=== PATIENT | female | born 1985 | race Caucasian/White ===

== ENCOUNTER 2016-11-19 16:36 | Emergency (ER) | payer OTHER ==
[~2016-11-19] VITALS: Ht 160 cm; Wt 117.0 kg
[~2016-11-19 16:36] MED LIST: CLINDAMYCIN HC300 MG PO; Motrin PO; Percocet 5/325,Endoc PO
[2016-11-19 17:21] LABS: BILIRUBIN NEGATIVE; BLOOD NEGATIVE; COLOR YELLOW ((YELLOW)); GLUCOSE (STRIP) NEGATIVE; KETONES NEGATIVE; LEUKOCYTES NEGATIVE; NITRITE NEGATIVE; PROTEIN (STRIP) NEGATIVE; SPECIFIC GRAVITY 1.018 (1.000-1.030); UROBILINOGEN 0.2 MG/DL (0.2-1.0)
[2016-11-19 17:30] LABS: HEMATOCRIT 42.5 % (36.0-46.0); MCH 30.4 PG (29.0-34.0); MCHC 32.9 G/DL (30.0-36.0); MCV 92.4 FL (83-99); MEAN PLAT.VOLUME 10.1 uM^3 (9.5-12.4); PLATELET COUNT 260 K/uL (156-360); RBC DIS.WIDTH-CV 13.2 % (11.8-14.6); RBC DIS.WIDTH-SD 44.8 % (39-53); WHITE BLOOD COUNT 10.4 K/uL (4.1-10.2)
[2016-11-19 17:38] LABS: CHLORIDE 106 mEq/L (99-109); POTASSIUM 3.9 mEq/L (3.7-5.4); SODIUM 136 mEq/L (136-147)
[2016-11-19 17:40] LABS: GLUCOSE 89 mg/dL (70-99)
[2016-11-19 17:41] LABS: ANION GAP 8 MEQ/L (2-14)
[2016-11-19 17:41] LABS: ADD MIUA? NO; UCUL ADDED? NO
[2016-11-19 17:42] LABS: TOTAL BILIRUBIN 0.2 mg/dL (0.0-1.0)
[2016-11-19 17:44] LABS: ALKALINE PHOSPHATASE 54 IU/L (3-129); GFR ESTIMATE (CALCULATED) > 59 mL/min/
[2016-11-19 17:45] LABS: UREA NITROGEN (BUN) 15 mg/dL (9-23)
[2016-11-19 17:52] LABS: QUANTITATIVE HCG < 4.0 MIU/ML
[2016-11-19] MEDS ORDERED: ZOFRAN ODT4 MG PO (18:24)
[2016-11-19] MEDS ORDERED: ULTRAM50 MG PO (18:24)
[2016-11-19 18:38] VITALS: BP 125/79
== END 2016-11-19 18:39 | disposition home or self-care (01) ==
LOC: EME 16:36
DX: N83.201 Unspecified ovarian cyst, right side (principal); R11.2 Nausea with vomiting, unspecified; R35.0 Frequency of micturition; R39.15 Urgency of urination; Z87.442 Personal history of urinary calculi; F17.200 Nicotine dependence, unspecified, uncomplicated
CPT/HCPCS: 74176; 80053; 81003; 84702; 85027; 99281; 99282; J1885

== ENCOUNTER 2016-11-22 08:34 | Emergency (ER) | payer OTHER ==
[~2016-11-22] VITALS: Ht 160 cm; Wt 119.9 kg
[~2016-11-22 08:34] MED LIST changes: +ULTRAM50 MG PO; +ZOFRAN ODT4 MG PO
[2016-11-22 09:30] LABS: HEMATOCRIT 40.1 % (36.0-46.0); MCH 30.6 PG (29.0-34.0); MCHC 32.9 G/DL (30.0-36.0); MEAN PLAT.VOLUME 10.1 uM^3 (9.5-12.4); PLATELET COUNT 239 K/uL (156-360); RBC DIS.WIDTH-CV 13.2 % (11.8-14.6); RBC DIS.WIDTH-SD 45.6 % (39-53); RED BLOOD COUNT 4.31 M/uL (3.80-5.20); WHITE BLOOD COUNT 8.1 K/uL (4.1-10.2)
[2016-11-22 09:42] LABS: CHLORIDE 108 mEq/L (99-109); POTASSIUM 4.3 mEq/L (3.7-5.4); SODIUM 140 mEq/L (136-147)
[2016-11-22 09:44] LABS: GLUCOSE 90 mg/dL (70-99)
[2016-11-22 09:46] LABS: ANION GAP 6 MEQ/L (2-14)
[2016-11-22 09:48] LABS: ALKALINE PHOSPHATASE 46 IU/L (3-129); GFR ESTIMATE (CALCULATED) > 59 mL/min/
[2016-11-22 09:49] LABS: TOTAL BILIRUBIN 0.4 mg/dL (0.0-1.0); UREA NITROGEN (BUN) 13 mg/dL (9-23)
[2016-11-22 09:57] LABS: QUANTITATIVE HCG < 4.0 MIU/ML
[2016-11-22] MEDS ORDERED: ZOFRAN ODT4 MG PO (11:32)
[2016-11-22] MEDS ORDERED: MOTRIN800 MG PO (11:32)
[2016-11-22 13:27] VITALS: BP 122/68
== END 2016-11-22 13:28 | disposition home or self-care (01) ==
LOC: EME 08:34
PROVIDERS: Nurse Practitioner Family
DX: N83.201 Unspecified ovarian cyst, right side (principal); F17.200 Nicotine dependence, unspecified, uncomplicated
CPT/HCPCS: 74177; 76856; 80053; 81003; 84702; 85027; 93975; 99281; 99285; J1885; J2405; J7030

== ENCOUNTER 2018-01-28 20:17 | Emergency (ER) | payer OTHER ==
[~2018-01-28] VITALS: Ht 160 cm; Wt 106.3 kg
[~2018-01-28 20:17] MED LIST changes: +MOTRIN800 MG PO
[2018-01-28 21:00] LABS: HEMATOCRIT 36.9 % (36.0-46.0); HEMOGLOBIN 12.6 G/DL (11.9-15.5); MCH 31.3 PG (29.0-34.0); MCHC 34.1 G/DL (30.0-36.0); MCV 91.6 FL (83-99); PLATELET COUNT 167 K/uL (156-360); RBC DIS.WIDTH-CV 14.3 % (11.8-14.6); RBC DIS.WIDTH-SD 48.3 % (39-53); RED BLOOD COUNT 4.03 M/uL (3.80-5.20); WHITE BLOOD COUNT 9.1 K/uL (4.1-10.2)
[2018-01-28 21:09] LABS: ALBUMIN 3.4 g/dL (3.2-4.8)
[2018-01-28 21:10] LABS: CHLORIDE 110 mEq/L (99-109); POTASSIUM 3.8 mEq/L (3.7-5.4); SODIUM 141 mEq/L (136-147)
[2018-01-28 21:12] LABS: GLUCOSE 91 mg/dL (70-99); TOTAL PROTEIN 5.5 g/dL (6.4-8.3)
[2018-01-28 21:14] LABS: TOTAL BILIRUBIN 0.2 mg/dL (0.0-1.0)
[2018-01-28 21:16] LABS: ALKALINE PHOSPHATASE 42 IU/L (3-129); CREATININE 0.8 mg/dL (0.6-1.3); GFR ESTIMATE (CALCULATED) > 59 mL/min/
[2018-01-28 21:17] LABS: AST (GOT) 18 IU/L (2-34); UREA NITROGEN (BUN) 10 mg/dL (9-23)
[2018-01-28 21:19] LABS: ALT (GPT) 23 IU/L (3-49); LIPASE 14 U/L (1.0-51.0)
[2018-01-28 21:22] LABS: APPEARANCE CLOUDY ((CLEAR)); BILIRUBIN SMALL; BLOOD NEGATIVE; COLOR AMBER ((YELLOW)); GLUCOSE (STRIP) NEGATIVE; KETONES 20; LEUKOCYTES TRACE; NITRITE NEGATIVE; PROTEIN (STRIP) 30; SPECIFIC GRAVITY 1.032 (1.000-1.030)
[2018-01-28 21:25] LABS: QUANTITATIVE HCG < 4.0 MIU/ML
[2018-01-28 22:03] LABS: RED BLOOD CELLS NONE SEEN /HPF (0-5)
[2018-01-28 22:04] LABS: BACTERIA 2+ /HPF; EPITHELIAL CELLS 2+ /HPF; MUCUS 3+ /LPF; UCUL ADDED? YES; WHITE BLOOD CELLS 0-5 /HPF (0-5)
[2018-01-28 22:05] LABS: CALCIUM OXALATE CRYSTALS 1+ /HPF
[2018-01-28] MEDS ORDERED: ZOFRAN ODT4 MG PO (22:41)
[2018-01-28] MEDS ORDERED: PERCOCET 5/31 TABLET PO (22:41)
[2018-01-28 22:45] VITALS: BP 99/42
== END 2018-01-28 22:47 | disposition home or self-care (01) ==
LOC: EME 20:17 → RME 20:17
PROVIDERS: Physician Assistant
DX: R10.11 Right upper quadrant pain (principal); Z98.84 Bariatric surgery status; Z87.442 Personal history of urinary calculi; F17.200 Nicotine dependence, unspecified, uncomplicated
CPT/HCPCS: 76705; 80053; 81003; 83690; 84702; 85027; 87086; 99281; 99284